=== PATIENT | male | born 1970 | race Caucasian/White ===

== ENCOUNTER 2016-09-05 11:54 | Emergency (ER) | payer OTHER, MEDICAID ==
[2016-09-05] MEDS ORDERED: NS 2,000 ML IV ONE (11:58)
--- NOTE | 2016-09-05 12:02 | EDPHY ---
H & P HPI/ROS: HPI CHIEF COMPLAINT: Nausea, generalized weakness, presyncope, leg pain from [facility] HISTORY OF PRESENT ILLNESS: this patient otherwise healthy 46-year-old male significant past medical history for hypertension, depression, presents emergency room by EMS after he was running at the [facility] today he finish the race but towards any got nauseated felt very weak and felt like he was going to pass out he specifically tells me did not have any chest pain or shortness of breath. He presents emergency room by EMS for generalized weakness. He does state that he feels better now that he arrived he did receive Zofran prior to arrival by EMS and 750 cc of fluid. Upon arrival here in emergency room appears well he denies chest pain or shortness of breath Past Medical History: hypertension, depression Past Surgical History: no recent surgery Social History: denies daily use of drugs alcohol tobacco products Family History: noncontributory ROS REVIEW OF SYSTEMS: A comprehensive 10 point review of systems is otherwise negative aside from elements mentioned in the history of present illness. Exam Constitutional appears well nontoxic, triage nursing summary reviewed, vital signs reviewed, awake/alert. Eyes normal conjunctivae and sclera, EOMI, PERRLA. HENT normal inspection, atraumatic, dry mucous membranes, no epistaxis, neck supple/ no meningismus, no raccoon eyes. Respiratory clear to auscultation bilaterally, normal breath sounds, no respiratory distress, no wheezing. Cardiovascular rate normal, regular rhythm, no murmur, no edema, distal pulses normal. Gastrointestinal soft, non-tender, no rebound, no guarding, normal bowel sounds, no distension, no pulsatile mass. Genitourinary no CVA tenderness. Musculoskeletal no midline vertebral tenderness, full range of motion, no calf swelling, no tenderness of extremities, no meningismus, good pulses, neurovascularly intact. Skin pink, warm, & dry, no rash, skin atraumatic. Neurologic awake, alert and oriented x 3, AAOx3, moves all 4 extremities equally, motor intact, sensory intact, CN II-XII intact, normal cerebellar, normal vision, normal speech. Psychiatric normal mood/affect. Heme/Lymph/Immune no lymphadenopathy. Differential Diagnosis: includes but is not limited to in a particular order, electrolyte disturbance, renal failure, rhabdomyolysis, dehydration, ACS Medical Decision Making: plan for this patient full school lunch monitor, EKG, IV establishment, IV fluid bolus, check CK, check renal function, check troponin. Re-evaluation: EKG interpretation by me on record in [facility] system. Impression time of EKG 12:07 p.m. this is sinus tachycardia rate of 101 slight motion artifact V1 V2 otherwise unremarkable EKG when compared to old EKG dated 10/23/2014 unchanged in morphology. 1339: Re-evaluation this time this patient is resting comfortably. He denies having any chest pain or shortness of breath. His nausea has resolved. He tells me feels great and would like to be discharged from the emergency room. I explained that his blood work looks reassuring. No evidence of rhabdo. He is well-hydrated after 2 L of fluid normal saline. He feels much better. Denies any current complaints. Will road test here to make sure can't ambulate well throughout the emergency room and p. o. challenge he does this allowed to be discharged. He does understand return emergency room if develops any further concerns or symptoms including chest pain, shortness of breath, nausea, vomiting or lightheadedness. Source: Patient, EMS - Medical/Surgical History Hx Asthma: No Hx Chronic Respiratory Disease: No Hx Diabetes: No Hx Cardiac Disease: Yes Hx Renal Disease: No Hx Cirrhosis: No Hx Alcoholism: No Hx HIV/AIDS: No Hx Splenectomy or Spleen Trauma: No Other PMH: depression,arthritis,high chol,htn - Social History Smoking Status: Never smoked Constitutional: Initial Vital Signs O2 Sat (%) 98 09/05/16 11:58 O2 Delivery Mode Room Air O2 (L/minute) 2 Allergies/Adverse Reactions: iodine Allergy (Verified 09/05/16 12:17) Home Medications: Medication Instructions Recorded Chol Med 10/23/14 Lisinopril [Zestril] 5 mg PO DAILY 10/23/14 Venlafaxine HCl [Effexor] 25 mg PO 10/23/14 Medical Decision Making - Data Points Laboratory Results: Laboratory Results 09/05/16 12:00 09/05/16 12:00 09/05/16 09/05/16 12:00 12:00 WBC 11.08 10^3/uL H 10^3/uL (3.80-9.50) RBC 4.75 10^6/uL 10^6/uL (4.40-6.38) Hgb 15.3 g/dL g/dL (13.7-17.5) Hct 43.3 % % (40.0-51.0) MCV 91.2 fL fL (81.5-99.8) MCH 32.2 pg pg (27.9-34.1) MCHC 35.3 g/dL g/dL (32.4-36.7) RDW 11.9 % % (11.5-15.2) Plt Count 258 10^3/uL 10^3/uL (150-400) MPV 12.6 fL H fL (8.7-11.7) Neut % (Auto) 67.2 % % (39.3-74.2) Lymph % (Auto) 24.3 % % (15.0-45.0) [place] % (Auto) 7.3 % % (4.5-13.0) Eos % (Auto) 0.4 % L % (0.6-7.6) Baso % (Auto) 0.4 % % (0.3-1.7) Nucleat RBC Rel Count 0.0 % % (0.0-0.2) Absolute Neuts (auto) 7.46 10^3/uL H 10^3/uL (1.70-6.50) Absolute Lymphs (auto) 2.69 10^3/uL 10^3/uL (1.00-3.00) Absolute Monos (auto) 0.81 10^3/uL H 10^3/uL (0.30-0.80) Absolute Eos (auto) 0.04 10^3/uL 10^3/uL (0.03-0.40) Absolute Basos (auto) 0.04 10^3/uL 10^3/uL (0.02-0.10) Absolute Nucleated RBC 0.00 10^3/uL 10^3/uL (0-0.01) Immature Gran % 0.4 % % (0.0-1.1) Immature Gran # 0.04 10^3/uL 10^3/uL (0.00-0.10) Sodium 138 mEq/L mEq/L (134-144) Potassium 5.4 mEq/L H mEq/L (3.5-5.2) Chloride 100 mEq/L mEq/L (97-110) Carbon Dioxide 22 mEq/l mEq/l (22-31) Anion Gap 16 mEq/L mEq/L (8-16) BUN 34 mg/dL H mg/dL (7-23) Creatinine 1.3 mg/dL mg/dL (0.7-1.3) Estimated GFR 59 Glucose 111 mg/dL H mg/dL (70-100) Calcium 9.8 mg/dL mg/dL (8.5-10.4) Creatine Kinase 197 IU/L IU/L (0-224) CK-MB (CK-2) Fraction 2.60 ng/mL ng/mL (0-3.19) Troponin I < 0.012 ng/mL ng/mL (0-0.034) Medications Given: Discontinued Medications Sodium Chloride (Ns) 2,000 mls @ 0 mls/hr IV ONCE ONE PRN Reason: Wide Open Stop: 09/05/16 11:59 Last Admin: 09/05/16 12:32 Dose: 2,000 mls Departure - Departure Disposition: Home, Routine, Self-Care Clinical Impression: Dehydration Condition: Good Instructions: Dehydration (ED) Additional Instructions: 1.Stay well-hydrated drink lots of fluids today. 2. Return emergency room if he develops any worsening symptoms questions or concerns includes feeling he is going to pass out, chest pain, shortness of breath. Referrals: Patient,NotPresent [Primary Care Provider] - As per Instructions
[2016-09-05 12:07] LABS: % IMMATURE GRANULYOCYTES 0.4 % (0.0-1.1); ABSOLUTE IMMATURE GRANULOCYTES 0.04 10^3/uL (0.00-0.10); ADD DIFF? NO; ADD MORPH? NO; ADD SCAN? NO; ATYPICAL LYMPHOCYTE FLAG 20 (0-99); FRAGMENT RBC FLAG 0 (0-99); HEMATOCRIT 43.3 % (40.0-51.0); HEMOGLOBIN 15.3 g/dL (13.7-17.5); LEFT SHIFT FLG 0 (0-99); LIPEMIA HEMOLYSIS FLAG 90 (0-99); MEAN CELL HEMOGLOBIN 32.2 pg (27.9-34.1); MEAN CELL HEMOGLOBIN CONCENTR. 35.3 g/dL (32.4-36.7); MEAN CELL VOLUME 91.2 fL (81.5-99.8); MEAN PLATELET VOLUME 12.6 fL (8.7-11.7); PLATELET CLUMPS FLAG 0 (0-99); PLATELET COUNT 258 10^3/uL (150-400); RED BLOOD CELL COUNT 4.75 10^6/uL (4.40-6.38); RED CELL DISTRIBUTION WIDTH 11.9 % (11.5-15.2)
--- NOTE | 2016-09-05 12:09 | CPEKG ---
Heart Rate: 101 RR Interval: 594 P-R Interval: 176 QRSD Interval: 78 QT Interval: 340 QTC Interval: 441 P [place]: 67 QRS [place]: 24 T Wave [place]: 13 EKG Severity - OTHERWISE NORMAL ECG - EKG Impression: SINUS TACHYCARDIA Electronically Signed By: Elder Hoover 05-Sep-2016 21:13:46
[2016-09-05 12:19] VITALS: TEMP 97.9
[2016-09-05 12:20] LABS: ANION GAP 16 mEq/L (8-16); CALCIUM 9.8 mg/dL (8.5-10.4); CARBON DIOXIDE 22 mEq/l (22-31); CHLORIDE 100 mEq/L (97-110); CREATININE 1.3 mg/dL (0.7-1.3); GLOMERULAR FILTRATION RATE 59; GLUCOSE 111 mg/dL (70-100); POTASSIUM 5.4 mEq/L (3.5-5.2); SODIUM 138 mEq/L (134-144)
[2016-09-05 12:32] LABS: TROPONIN I < 0.012 ng/mL (0-0.034)
[2016-09-05 14:29] VITALS: BP 122/88; PULSE 90; RESP 18; O2SAT 97
== END 2016-09-05 14:10 | disposition home or self-care (01) ==
LOC: EDUNIT#
DX: E86.0 Dehydration (principal); I10 Essential (primary) hypertension

== ENCOUNTER → 2018-04-26 | Outpatient (CLI) | payer OTHER, MEDICAID | LOC: FIMAGING 13:47 | PROVIDERS: ATTEND Family Medicine | DX: M25.851 Other specified joint disorders, right hip (principal) ==

== ENCOUNTER → 2018-07-11 | Outpatient (CLI) | payer OTHER, MEDICAID ==
[~2018-07-11] MED LIST: BUPIVACAINE 0.25% 30 ML SDV ONE; DEPO METHYLPREDNISOLONE 40 MG/ML SDV ONE; LIDOCAINE 1% 300 MG/30 ML SDV ONE
== END ==
LOC: FIMAGING 13:40
PROVIDERS: ATTEND Family Medicine
DX: M16.11 Unilateral primary osteoarthritis, right hip (principal)
CPT/HCPCS: 20611; J1030

== ENCOUNTER 2018-07-15 10:18 | Emergency (ER) | payer OTHER, MEDICAID ==
[2018-07-15 10:25] VITALS: BP 158/102
--- NOTE | 2018-07-15 10:37 | EDPHY ---
General Time Seen by Provider: 07/15/18 10:36 Narrative: CLINICAL IMPRESSION: Resolving ecchymosis, wound check ASSESSMENT/PLAN: Patient is a 48-year-old male with a significant history of hypertension, depression, hyperlipidemia, restless legs and recently melanoma diagnosis who presents to the emergency department with concerns of a rash around his neck. Patient is afebrile, not toxic appearing and in no acute distress. His vital signs were reviewed, no findings to suggest sepsis or systemic illness. He is noted to have elevated blood pressure, he reports that this is not uncommon for him and there was no evidence of hypertensive urgency or emergency. Physical examination reveals approximately 8 cm excision site that is well approximated on his right lateral neck, no surrounding erythema, drainage or induration. Surrounding the recent excision site is resolving ecchymosis extending into his submandibular space. I walked the patient to the bathroom so we could look in the mirror together, he pointed directly at the area of ecchymosis as his area of concern. History and physical examination is consistent with recent melanoma excision with resolving surrounding ecchymosis extending in his submandibular space. There was no evidence of wound dehiscence, infection, anaphylaxis, SJS/TENS, necrotizing skin infection, zoster or other rash. The patient has an appointment scheduled for suture removal and wound check this coming week, he will call sooner if he has any wound concerns. Conservative return precautions discussed-patient will return for development of fever, redness, drainage, increased swelling or for any other concerning symptom. Patient verbalizes understanding and he is in agreement with this plan. DIFFERENTIAL DX: Differential diagnosis including but not limited to herpes zoster, anaphylaxis, Tens/SJS, cellulitis, wound dehiscence, abscess, deep space infection, necrotizing skin infection ED COURSE: 1049: Case discussed with Dr. Marie CHIEF COMPLAINT: Possible rash around neck HPI: Patient is a 48-year-old male with a significant history of hypertension, depression, hyperlipidemia, restless leg syndrome and recent melanoma diagnosis with excision presents to the emergency department with possible rash around his neck. Patient reports last Monday he had an excision of melanoma on his right lateral neck. He denies any concerns with his wound or incision site. Went to work this morning at [employer] and one of his coworkers asked if he had a rash around his neck. Patient looked in the mirror and was unsure about what he was seeing. He denies any fever, chills, sore throat, throat tightness , neck stiffness, chest pain or shortness of breath. Appetite has been normal, he has had no difficulty with eating or drinking. No history of anaphylaxis, no recent new medication use. He denies any other concern or complaint. Patient does have an appointment scheduled for suture removal and wound evaluation next . PMH: Depression, hypertension, hyperlipidemia, restless leg syndrome and history of melanoma Pertinent Past Surgical History: Melanoma excision Family History: Denies Social History: Former smoker, denies alcohol or illicit drug use. REVIEW OF SYSTEMS: All other systems negative Constitutional: No fever, no chills, appetite change. Eyes: No discharge, vision change ENT: No sore throat, congestion, ear pain. Cardiovascular: No chest pain, no palpitations. Respiratory: No cough, no shortness of breath. Gastrointestinal: No abdominal pain, no vomiting, diarrhea. Genitourinary: No hematuria, dysuria, flank pain, pelvic pain Musculoskeletal: No back pain, joint swelling, joint pain, myalgias. Skin: Rash. Neurological: No headache, dizziness, weakness. PHYSICAL EXAM: General Appearance: Alert, patient is well-appearing and in no acute distress. HENT: Normocephalic, atraumatic. Bilateral external ears are normal. Bilateral tympanic membranes are normal with pearly gibbons reflex. Nares are clear, mucosa is pink. Oropharynx is clear, uvula is midline. There is no tonsillar enlargement or exudate. The dentition is normal. Eyes: PERRLA, EOMI. Conjunctiva pink, no pallor or injection. Neck: Right lateral neck with approximately 8 cm recent incision that is well approximated with sutures. There is no surrounding erythema or induration. There is no fluctuance or drainage. Patient with resolving ecchymosis inferior to the excision site extending into the submandibular space. I am unable to appreciate any rash on examination. I walked the patient to the bathroom and we looked in the mirror together and I asked him specifically what he was enquiring about, he points directly at the ecchymosis under his chin. Supple, no lymphadenopathy, no midline pain, FROM, no meningismus. Respiratory: There are no retractions, lungs are clear to auscultation. Cardiac: Regular rate and rhythm, no murmurs or gallops. Gastrointestinal: Abdomen is soft, nontender, bowel sounds normal, no masses/ hernia, no rigidity, guarding or focal peritoneal findings. Neurological: Alert and oriented x 3, CN 2-12 grossly intact, normal gait no ataxia, DTR's intact, normal sensation and strength Skin: Warm, dry, as above. Musculoskeletal: Extremities are symmetrical, full range of motion, no tenderness, deformity, swelling, or erythema. Psychiatric: Patient is oriented X 3, there is no agitation. MEDICAL DECISION MAKING: Patient was seen independently. Secondary supervising physician at time of evaluation was Dr. Marie, he did not evaluate this patient. Diagnosis: Resolving ecchymosis, recent melanoma excision wound check. Summary: See Assessment and Plan for summary of ED visit Clinical lab tests: Not applicable. Independent visualization of images, tracing, or specimens: Not applicable. Decision to obtain medical records or history from someone other than the patient: No Review / Summarize previous medical records: Yes Discussed patient with another provider: Yes, Dr. Marie Patient Progress: Stable, discharged. - History Smoking Status: Former smoker - Objective Vital Signs: Initial Vital Signs Temperature (C) 36.7 C 07/15/18 10:22 Heart Rate 84 07/15/18 10:22 Respiratory Rate 17 07/15/18 10:22 Blood Pressure 158/102 H 07/15/18 10:22 O2 Sat (%) 95 07/15/18 10:22 O2 Delivery Mode Room Air Allergies/Adverse Reactions: iodine Allergy (Verified 07/15/18 10:21) Home Medications: Medication Instructions Recorded Chol Med 10/23/14 Lisinopril [Zestril] 5 mg PO DAILY 10/23/14 Venlafaxine HCl [Effexor] 25 mg PO 10/23/14 Departure - Departure Disposition: Home, Routine, Self-Care Clinical Impression: Ecchymosis of neck Condition: Good Instructions: Ecchymosis (ED) Additional Instructions: DISCHARGE INSTRUCTIONS FROM YOUR DOCTOR Thank you for visiting our emergency department today. Please keep in mind that discharge from the emergency department does not mean that there is nothing wrong - it simply means that we have not identified an emergency condition that requires further evaluation or treatment in the hospital. You should always plan to follow up with primary care for re-evaluation of your condition in the next 2-3 days. There was no rash identified, your incision looks as it should. There is surrounding bruising that is the area of concern to today. Please follow-up with your primary care provider and whomever excised your melanoma. Please call tomorrow morning to schedule an appointment if you have any concerns prior to your scheduled appointment . Please continue your local wound care instructions that your surgeon gave you, keep covered. People present with illnesses and injuries in different ways, and it is always possible that we have missed something. You may always return for re-evaluation if symptoms worsen or if they are not improving or if you develop new/different symptoms. Again, thank you for choosing our emergency department. We hope that you feel better. Referrals: Coy Calderon MD [Primary Care Provider] - 1-2 days without fail
== END 2018-07-15 11:20 | disposition home or self-care (01) ==
DX: R23.3 Spontaneous ecchymoses (principal); C43.9 Malignant melanoma of skin, unspecified; Z98.890 Other specified postprocedural states

== ENCOUNTER → 2018-08-09 | Outpatient (CLI) | payer OTHER, MEDICAID | LOC: FIMAGING 10:18 | PROVIDERS: ATTEND Family Medicine | DX: M25.761 Osteophyte, right knee (principal) ==

== ENCOUNTER 2018-08-23 13:36 | Emergency (ER) | payer OTHER, MEDICAID ==
[2018-08-23] MEDS ORDERED: LORazepam 2 MG/ML INJ IVP ONE (14:00)
--- NOTE | 2018-08-23 14:00 | EDPHY ---
H & P Stated Complaint: feels dizzy headache nausea weakness after taking supplement Time Seen by Provider: 08/23/18 13:49 HPI/ROS: CHIEF COMPLAINT: Dizziness and headache after taking dietary supplement HISTORY OF PRESENT ILLNESS: The patient presents the ED with complaints of dizziness and headache after taking a dietary supplement. The patient only took an extra dose. The active ingredient in the supplement is GRACE. The patient has a history of developmental delay, depression and anxiety. Patient denies any chest pain or shortness of breath. He has a mild frontal headache. He denies any focal numbness or weakness. The patient denies additional acute complaints. REVIEW OF SYSTEMS: A comprehensive 10 point review of systems is otherwise negative aside from elements mentioned in the history of present illness. Source: Patient Exam Limitations: No limitations - Personal History Current Tetanus/Diphtheria Vaccine: Unsure Current Tetanus Diphtheria and Acellular Pertussis (TDAP): Unsure - Medical/Surgical History Hx Asthma: No Hx Chronic Respiratory Disease: No Hx Diabetes: No Hx Cardiac Disease: No Hx Renal Disease: No Hx Cirrhosis: No Hx Alcoholism: No Hx HIV/AIDS: No Hx Splenectomy or Spleen Trauma: No Other PMH: depression,arthritis, high chol, htn, melanoma, developmental disability - Social History Smoking Status: Former smoker - Physical Exam Exam: General Appearance: Obese male, slightly anxious, no acute distress Eyes: Pupils equal and round no pallor or injection ENT, Mouth: Mucous membranes moist Respiratory: There are no retractions, lungs are clear to auscultation Cardiovascular: Tachycardia Gastrointestinal: Abdomen is soft and nontender, no masses, bowel sounds normal Neurological: A&O, normal motor function, normal sensory exam, normal cranial nerves Skin: Warm and dry, no rashes Musculoskeletal: Neck is supple nontender Extremities: symmetrical, full range of motion Psychiatric: Patient is oriented X 3, there is no agitation Constitutional: Initial Vital Signs Temperature (C) 36.5 C 08/23/18 13:44 Heart Rate 74 08/23/18 13:44 Respiratory Rate 18 08/23/18 13:44 Blood Pressure 136/101 H 08/23/18 13:44 O2 Sat (%) 97 08/23/18 13:44 O2 Delivery Mode Room Air Allergies/Adverse Reactions: iodine Allergy (Verified 07/15/18 10:21) Home Medications: Medication Instructions Recorded Chol Med 10/23/14 Lisinopril [Zestril] 5 mg PO DAILY 10/23/14 Venlafaxine HCl [Effexor] 25 mg PO 10/23/14 Garcinia Cambogia Tablet 08/23/18 Omeprazole 08/23/18 Primidone 250mg (*) 08/23/18 Medical Decision Making - Diagnostics EKG Interpretation: EKG: Complete interpretation has been separately recorded in the [employer] [facility] archive. Summary impression: Sinus rhythm, rate 71, no arrhythmia or ischemia noted. ED Course/Re-evaluation: The patient presents to the ED with lightheadedness and dysphoria after taking an extra dose of a dietary supplement. The patient is on a number of psychiatric medications for depression and anxiety. The patient is nontoxic well-appearing. He has no evidence of a serotonin syndrome. His EKG demonstrates no evidence of an arrhythmia. The patient was treated with IV Ativan in the emergency department he underwent serial examinations over a 2 hr period with marked improvement of his symptoms. At this point time he has no evidence of an toxidrome. The patient will be discharged home with instructions not to take dietary supplements in the setting of his numerous psychiatric medications. The patient is advised to return to the ED for markedly worsening symptoms or other concerns. Differential Diagnosis: Differential diagnosis considered includes serotonin syndrome, medication side effect, metabolic derangement, arrhythmia - Data Points Laboratory Results: Laboratory Results 08/23/18 14:33 08/23/18 14:33 08/23/18 08/23/18 14:33 14:33 WBC 8.42 10^3/uL 10^3/uL (3.80-9.50) RBC 4.42 10^6/uL 10^6/uL (4.40-6.38) Hgb 13.7 g/dL g/dL (13.7-17.5) Hct 40.2 % % (40.0-51.0) MCV 91.0 fL fL (81.5-99.8) MCH 31.0 pg pg (27.9-34.1) MCHC 34.1 g/dL g/dL (32.4-36.7) RDW 12.4 % % (11.5-15.2) Plt Count 177 10^3/uL 10^3/uL (150-400) MPV 11.7 fL fL (8.7-11.7) Neut % (Auto) 79.2 % H % (39.3-74.2) Lymph % (Auto) 12.9 % L % (15.0-45.0) [place] % (Auto) 6.5 % % (4.5-13.0) Eos % (Auto) 0.7 % % (0.6-7.6) Baso % (Auto) 0.2 % L % (0.3-1.7) Nucleat RBC Rel Count 0.0 % % (0.0-0.2) Absolute Neuts (auto) 6.66 10^3/uL H 10^3/uL (1.70-6.50) Absolute Lymphs (auto) 1.09 10^3/uL 10^3/uL (1.00-3.00) Absolute Monos (auto) 0.55 10^3/uL 10^3/uL (0.30-0.80) Absolute Eos (auto) 0.06 10^3/uL 10^3/uL (0.03-0.40) Absolute Basos (auto) 0.02 10^3/uL 10^3/uL (0.02-0.10) Absolute Nucleated RBC 0.00 10^3/uL 10^3/uL (0-0.01) Immature Gran % 0.5 % % (0.0-1.1) Immature Gran # 0.04 10^3/uL 10^3/uL (0.00-0.10) Sodium 136 mEq/L mEq/L (135-145) Potassium 4.2 mEq/L mEq/L (3.5-5.2) Chloride 99 mEq/L mEq/L (97-110) Carbon Dioxide 25 mEq/l mEq/l (22-31) Anion Gap 12 mEq/L mEq/L (6-14) BUN 12 mg/dL mg/dL (7-23) Creatinine 0.7 mg/dL mg/dL (0.7-1.3) Estimated GFR > 60 Glucose 104 mg/dL H mg/dL (70-100) Calcium 8.5 mg/dL mg/dL (8.5-10.4) Medications Given: Discontinued Medications Lorazepam (Ativan Injection) 1 mg IVP EDNOW ONE Stop: 08/23/18 14:01 Last Admin: 08/23/18 14:41 Dose: 1 mg Departure - Departure Disposition: Home, Routine, Self-Care Clinical Impression: Medication side effect, Dizziness Condition: Good Instructions: Dizziness (ED) Additional Instructions: 1. I recommend not taking any dietary supplements given the other medications your currently taking. 2. The EKG and laboratory testing today demonstrates no worrisome findings. 3. Return to the ED for markedly worsening symptoms, severe headache, numbness, weakness, chest pain or other concerns. I do believe the your symptoms should subside over the next day as you metabolized the dietary pills you took earlier today. Referrals: Coy Calderon MD [Primary Care Provider] - As per Instructions
[2018-08-23 14:47] LABS: PLATELET COUNT 177 10^3/uL (150-400)
--- NOTE | 2018-08-23 14:56 | CPEKG ---
Test Reason : OPEN Blood Pressure : / mmHG Vent. Rate : 071 BPM Atrial Rate : 073 BPM P-R Int : 190 ms QRS Dur : 089 ms QT Int : 387 ms P-R-T Axes : 047 002 016 degrees QTc Int : 421 ms Sinus rhythm Abnormal R-wave progression, early transition Confirmed by Flash Whiteside ([id number]) on 08/23/2018 2:56:04 PM Referred By: Flash Whiteside Confirmed By:Flash Whiteside
[2018-08-23 15:21] VITALS: BP 149/105
== END 2018-08-23 15:21 | disposition home or self-care (01) ==
DX: T88.7XXA Unspecified adverse effect of drug or medicament, initial encounter (principal); R42 Dizziness and giddiness; R51 Headache
CPT/HCPCS: 93005; 96374; 99284; J2060